=== PATIENT | female | born 1975 | race American Indian/Alaskan Native ===

== ENCOUNTER 2018-02-02 08:10 | Emergency (ER) | payer MEDICAID ==
[2018-02-02 10:02] LABS: Bacteria,Urine 1+ /HPF (Negative); Bilirubin,Urine NEG (Negative); Blood,Urine MOD (Negative); Color,Urine Yellow (Yellow); Mucus,Urine 1+ /HPF; Renal Epithelial Cells,Urine 1 /LPF
[2018-02-02 10:03] LABS: RBC,Urine > 182.0 /HPF (0.0-6.0); WBC,Urine > 182.0 /HPF (0.0-6.0)
[2018-02-02 10:06] LABS: HCG Qualitative,Urine Negative (Negative)
[2018-02-02] MEDS ORDERED: cefTRIAXone 1 GM in NACL 0.9% 20 ML IV NR (10:41)
[2018-02-02] MEDS ORDERED: ZOFRAN IV ONE (10:41)
[2018-02-02] MEDS ORDERED: NACL 0.9% 1000 ML 1,000 ML IV ONE (10:41)
[2018-02-02] MEDS ORDERED: TORADOL IV ONE (10:41)
--- NOTE | 2018-02-02 10:42 | Emergency Department Report ---
ED Female HPI - General Chief complaint: Urogenital-Female Stated complaint: UTI Time Seen by Provider: 02/02/18 10:33 Source: patient Mode of arrival: Ambulatory Limitations: No Limitations - History of Present Illness Initial comments: 42-year-old female past medical history history of UTIs previously presents with complaint of 3-4 days of increased urinary frequency and sensation of feeling slightly dehydrated. Patient is awake alert and oriented 3 not in acute distress. States she is having some bladder pain which radiates slightly up her flank. Denies any vomiting but does state she has been intermittently nauseous. Denies fevers or chills but does state that she has been feeling slightly more stressed than usual. Patient primarily complaining of increased urinary frequency. Patient is ambulatory without assistance. States urine is slightly darker in color. Denies any hematuria. Denies any discrete back pain. MD Complaint: dysuria Onset/Timin -: days(s) Consistency: intermittent Improves with: none Worsens with: urination Associated Symptoms: weakness, other - Related Data Home Medications Medication Instructions Recorded Confirmed Last Taken Solifenacin Succinate [Vesicare] 5 mg PO QDAY 08/12/13 08/12/13 08/14/13 Previous Rx's Medication Instructions Recorded Last Taken Type Ibuprofen [Motrin] 400 mg PO Q8H PRN #25 tablet 02/02/18 Unknown Rx Phenazopyridine [Pyridium] 200 mg PO TID #6 tab 02/02/18 Unknown Rx Sulfamethoxazole/Trimethoprim 1 each PO BID #20 tablet 02/02/18 Unknown Rx [Bactrim DS TAB] Allergies Allergy/AdvReac Type Severity Reaction Status Date / Time No Known Allergies Allergy Unverified 08/12/13 09:33 ED Review of Systems ROS: Stated complaint: UTI Other details as noted in HPI Constitutional: denies: chills, fever Eyes: denies: eye pain, eye discharge, vision change ENT: denies: ear pain, throat pain Respiratory: denies: cough, shortness of breath, wheezing Cardiovascular: denies: chest pain, palpitations Endocrine: no symptoms reported Gastrointestinal: denies: abdominal pain, nausea, diarrhea Genitourinary: urgency, dysuria, frequency. denies: discharge Musculoskeletal: denies: back pain, joint swelling, arthralgia Skin: denies: rash, lesions Neurological: denies: headache, weakness, paresthesias Psychiatric: denies: anxiety, depression Hematological/Lymphatic: denies: easy bleeding, easy bruising ED Past Medical Hx - Past Medical History Previous Medical History?: No Hx Hypertension: No Hx Renal Disease: No Hx Sickle Cell Disease: No Hx Asthma: No - Surgical History Past Surgical History?: Yes Hx Breast Surgery: Yes (BR reduction ) Additional Surgical History: inge davila 2014 - Social History Smoking Status: Never Smoker Substance Use Type: None - Medications Home Medications: Home Medications Medication Instructions Recorded Confirmed Last Taken Type Solifenacin Succinate [Vesicare] 5 mg PO QDAY 08/12/13 08/12/13 08/14/13 History Ibuprofen [Motrin] 400 mg PO Q8H PRN #25 tablet 02/02/18 Unknown Rx Phenazopyridine [Pyridium] 200 mg PO TID #6 tab 02/02/18 Unknown Rx Sulfamethoxazole/Trimethoprim 1 each PO BID #20 tablet 02/02/18 Unknown Rx [Bactrim DS TAB] ED Physical Exam - General Limitations: No Limitations General appearance: alert, in no apparent distress - Head Head exam: Present: atraumatic, normocephalic - Eye Eye exam: Present: normal appearance, PERRL, EOMI - ENT ENT exam: Present: mucous membranes moist - Neck Neck exam: Present: normal inspection - Respiratory Respiratory exam: Present: normal lung sounds bilaterally. Absent: respiratory distress - Cardiovascular Cardiovascular Exam: Present: regular rate, normal rhythm. Absent: systolic murmur, diastolic murmur, rubs, gallop - GI/Abdominal GI/Abdominal exam: Present: soft (+ suprapubic pain), normal bowel sounds - Extremities Exam Extremities exam: Present: normal inspection - Back Exam Back exam: Present: normal inspection, full ROM, other (patient does not have any CVA tenderness on percussion) - Neurological Exam Neurological exam: Present: alert, oriented X3, CN II-XII intact, normal gait - Psychiatric Psychiatric exam: Present: normal affect, normal mood - Skin Skin exam: Present: warm, dry, intact, normal color. Absent: rash ED Course Vital Signs 02/02/18 09:33 Temperature 98 F Pulse Rate 79 Respiratory 18 Rate Blood Pressure 148/103 O2 Sat by Pulse 100 Oximetry ED Medical Decision Making - Medical Decision Making A/P: Urinary tract infection 1-patient has no flank pain on percussion, vital signs stable, afebrile, not tachycardic. Tolerating by mouth fluid and food without difficulty 2-10 day course of Bactrim, pt given 1 dose of IV ceftriaxone while in the ED, urine culture sent 3-I advised patient to return to the ED if she experiences persistent nausea vomiting fever chills worsened abdominal or flank pain 4-vital signs stable before discharge Critical care attestation.: If time is entered above; I have spent that time in minutes in the direct care of this critically ill patient, excluding procedure time. ED Disposition Clinical Impression: Urinary tract infection Qualifiers: Urinary tract infection type: acute cystitis Hematuria presence: without hematuria Qualified Code(s): N30.00 - Acute cystitis without hematuria Disposition: TO HOME OR SELFCARE Is pt being admited?: No Does the pt Need Aspirin: No Condition: Stable Instructions: Urinary Tract Infection in Women (ED), Dysuria (ED), Phenazopyridine (By mouth) Prescriptions: Ibuprofen [Motrin] 400 mg PO Q8H PRN #25 tablet PRN Reason: Pain Phenazopyridine [Pyridium] 200 mg PO TID #6 tab Sulfamethoxazole/Trimethoprim [Bactrim DS TAB] 1 each PO BID #20 tablet Referrals: SANDI RABAGO SR, MD [Primary Care Provider] - 3-[address] [facility] [Provider Group] - 3-5 Days Forms: Accompanied Note, Work/School Release Form(ED) Time of Disposition: 12:09
[2018-02-02 12:10] VITALS: BP 157/99
== END 2018-02-02 12:10 | disposition home or self-care (01) ==
LOC: ED 08:10
DX: N39.0 Urinary tract infection, site not specified (principal)
CPT/HCPCS: 81001; 81025; 87086; 96361; 96374; 96375; 99283; J0696; J1885; J2405; J7030